=== PATIENT | female | born 1995 | race Two or more races ===

== ENCOUNTER 2018-04-22 00:47 | Inpatient (IN) | payer MEDICAID, OTHER ==
[~2018-04-22] VITALS: Ht 160 cm; Wt 57.7 kg
[2018-04-22] MEDS ORDERED: SULF1TAB42 PO (01:13)
[2018-04-22] MEDS ORDERED: METR500 PO (01:13)
[2018-04-22] MEDS ORDERED: METO-296 PO (01:13)
[2018-04-22] MEDS ORDERED: CEPH500T PO (01:13)
[2018-04-22] MEDS ORDERED: MAGNESIUM SULFATE 2 GM, MVI, ADULT NO.1 WITH VIT K 10 ML, THIAMINE HCL 100 MG, FOLIC AC... IV ONE ×5 (01:15)
[2018-04-22] MEDS ORDERED: SODIUM CHLORIDE 0.9% 1,000 ML IV ONE (01:15)
[2018-04-22] MEDS ORDERED: ONDANSETRON HCL 4 MG/2 ML VIAL IVP ONE (01:15)
[2018-04-22 01:32] LABS: BASOPHILS % (AUTO) 0.3 % (0.0-2.0); EOSINOPHILS % (AUTO) 0.6 % (1.0-6.0); HEMATOCRIT 36.3 % (36-46); HEMOGLOBIN 12.1 g/dL (12.0-16.0); LYMPHOCYTES # (AUTO) 1.5 K/uL (1.0-4.8); LYMPHOCYTES % (AUTO) 26.7 % (22.0-44.0); MEAN CORPUSCULAR HEMOGLOBIN 27.8 pg (26.0-34.0); MEAN CORPUSCULAR HGB CONC 33.4 G/dL (31.0-37.0); MEAN CORPUSCULAR VOLUME 83 fL (80-100); MONOCYTES # (AUTO) 0.4 K/uL (0.1-1.0); MONOCYTES % (AUTO) 7.6 % (2.0-9.0); NEUTROPHILS # (AUTO) 3.6 K/uL (1.8-7.7); NEUTROPHILS % (AUTO) 64.8 % (40.0-70.0); PLATELET COUNT (AUTO) 260 K/uL (150-450); RED BLOOD CELL COUNT(AUTO) 4.36 MIL/uL (4.00-5.20); RED CELL DISTRIBUTION WIDTH 13.3 % (11.5-14.5)
[2018-04-22 01:41] LABS: ANION GAP 13 mmol/L (8-16); CALCIUM, TOTAL 8.6 mg/dL (8.8-10.5); CARBON DIOXIDE 21 mmol/L (22-29); CHLORIDE 111 mmol/L (98-107); CREATININE 0.68 mg/dL (0.60-1.30); GLOMERULAR FILTR. RATE CALC > 60 mL/min (>60); GLUCOSE,RANDOM 114 mg/dL (70-110); POTASSIUM 3.5 mmol/L (3.5-5.1); SODIUM SERUM 145 mmol/L (136-145); UREA NITROGEN, BLOOD 3 mg/dL (7-18)
[2018-04-22 01:47] LABS: ALANINE AMINOTRANSFERASE 18 U/L (12-78); ALBUMIN 3.9 g/dL (3.4-5.0); ALKALINE PHOSPHATASE 39 U/L (46-116); ASPARTATE AMINOTRANSFERASE 11 U/L (15-37); BILIRUBIN,TOTAL 0.2 mg/dL (0.1-1.0); TOTAL PROTEIN, SERUM 7.1 g/dL (6.4-8.2)
[2018-04-22 02:16] LABS: APPEARANCE,URINE CLOUDY (CLEAR); BILIRUBIN,URINE NEGATIVE (NEGATIVE); GLUCOSE, URINE (UA) NEGATIVE (NEGATIVE); KETONES,URINE NEGATIVE (NEGATIVE); LEUKOCYTE ESTERASE ,URINE TRACE (NEGATIVE); NITRATE,URINE NEGATIVE (NEGATIVE); OCCULT BLOOD,URINE SMALL (NEGATIVE); PH,URINE 5.5 (5.0-8.0); PROTEIN,URINE NEGATIVE (NEGATIVE); UROBILINOGEN,URINE 0.2 mg/dL (<=1.0)
[2018-04-22 02:25] LABS: BACTERIA,URINE Moderate /HPF (None Seen); SQUAMOUS EPITHELIAL CELL,UR Many /LPF (None Seen)
[2018-04-22 02:29] LABS: AMPHET/METH SCREEN,URINE NEGATIVE (NEGATIVE); BARBITURATE SCREEN, URINE NEGATIVE (NEGATIVE); BENZODIAZEPINES SCREEN,URINE NEGATIVE (NEGATIVE); CANNABINOID SCREEN,URINE NEGATIVE (NEGATIVE); COCAINE SCREEN,URINE NEGATIVE (NEGATIVE); METHADONE SCREEN, URINE NEGATIVE (NEGATIVE); OPIATE SCREEN,URINE NEGATIVE (NEGATIVE)
[2018-04-22 02:30] LABS: PHENCYCLIDINE SCREEN,URINE NEGATIVE (NEGATIVE)
[2018-04-22 02:32] LABS: HCG,QUANTITATIVE 783 mIU/mL (0-6)
[2018-04-22] MEDS ORDERED: HALOPERIDOL 5 MG TABLET PO PRN (06:00)
[2018-04-22] MEDS ORDERED: LORazepam 2 MG TABLET PO PRN (06:00)
[2018-04-22] MEDS ORDERED: ZOLPIDEM TARTRATE 10 MG TABLET PO PRN (06:00)
[2018-04-22 10:17] VITALS: BP 119/79
[2018-04-22 16:00] VITALS: BP 123/65
[2018-04-22 19:30] VITALS: BP 112/82
[2018-04-23] VITALS: BP 116/63
[2018-04-23] MEDS: CEPHALEXIN MONOHYDRATE 500 MG CAPSULE PO SCH ×4 (00:15→17:50)
[2018-04-23 04:00] VITALS: BP 110/72
[2018-04-23 08:00] VITALS: BP 149/89
[2018-04-23 08:40] VITALS: BP 117/75
[2018-04-23] MEDS: MetroNIDAZOLE 500 MG TABLET PO SCH ×2 (08:42→16:57)
[2018-04-23 08:44] LABS: CHOL/HDL RATIO 2.3 (3.9-5.7)
[2018-04-23 16:00] VITALS: BP 109/78
[2018-04-24] MEDS: CEPHALEXIN MONOHYDRATE 500 MG CAPSULE PO SCH ×5 (01:21→23:57)
[2018-04-24 03:21] VITALS: BP 110/82
[2018-04-24 03:23] VITALS: BP 110/80
[2018-04-24 08:04] VITALS: BP 112/76
[2018-04-24] MEDS: MetroNIDAZOLE 500 MG TABLET PO SCH ×2 (08:07→16:48)
[2018-04-24 16:43] VITALS: BP 103/60
[2018-04-24 16:44] VITALS: BP 103/60
[2018-04-25] MEDS: CEPHALEXIN MONOHYDRATE 500 MG CAPSULE PO SCH ×2 (06:25→12:57)
[2018-04-25 06:44] VITALS: BP 122/85
[2018-04-25 08:11] VITALS: BP 107/61
[2018-04-25] MEDS: MetroNIDAZOLE 500 MG TABLET PO SCH (09:52)
== END 2018-04-25 13:10 | disposition home or self-care (01) | DRG 754 ==
LOC: EMS 00:47 → B3A 06:57
DX: F43.21 Adjustment disorder with depressed mood (principal); F10.10 Alcohol abuse, uncomplicated; F17.210 Nicotine dependence, cigarettes, uncomplicated; N39.0 Urinary tract infection, site not specified; Z91.5 Personal history of self-harm; Z63.4 Disappearance and death of family member; Z79.2 Long term (current) use of antibiotics; Z79.899 Other long term (current) drug therapy
CPT/HCPCS: 87086; 96365; 96375; 99285; G0480; J2405; J3411; J3475; J3490; J7030